=== PATIENT | female | born 1980 ===

== ENCOUNTER 2017-12-14 04:58 | Emergency (ER) | payer SELFPAY ==
[2017-12-14 05:24] VITALS: BP 143/79; PULSE 111; RESP 18; TEMP 99.1; O2SAT 99
[2017-12-14 05:31] VITALS: BMI 25.7
--- NOTE | 2017-12-14 05:50 | ED PDOC ---
Arrival/HPI - General Chief Complaint: Flu-like Symptoms Time Seen by Provider: 12/14/17 05:21 Historian: Patient - History of Present Illness Narrative History of Present Illness (Text): 12/14/17 05:50 A 37 year old female, whose past medical history includes arthritis, presents to the emergency department complaining of body aches and headache that developed two days ago, throat pain, fever and cough since yesterday. Nurse Ines served as application services manager. Patient reports a fever of 104 yesterday. Denies getting flu shot this year. Notes her had the flu three days ago. Patient denies any other complaints at this time. Time/Duration: Other (two days, yesterday) Symptom Onset: Sudden Symptom Course: Unchanged Activities at Onset: Rest Context: Home Past Medical History - Provider Review Nursing Documentation Reviewed: Yes - Infectious Disease Hx of Infectious Diseases: None - Musculoskeletal/Rheumatological Hx Arthritis: Yes - Genitourinary/Gynecological Other/Comment: Herpes - Psychiatric Hx Substance Use: No - Surgical History Hx Section: Yes - Anesthesia Hx Anesthesia: Yes Hx Anesthesia Reactions: No Hx Malignant Hyperthermia: No Family/Social History - Physician Review Nursing Documentation Reviewed: Yes Family/Social History: No Known Family HX Smoking Status: Never Smoked Hx Alcohol Use: No Hx Substance Use: No Allergies/Home Meds Allergies/Adverse Reactions: Allergies No Known Allergies Allergy (Verified 09/30/16 20:59) Review of Systems - Physician Review All systems were reviewed & negative as marked: Yes - Review of Systems Constitutional: Fevers, Other (body aches) ENT: Other (throat pain) Respiratory: Cough Neurological: Headache Physical Exam Vital Signs Reviewed: Yes Vital Signs Temp Pulse Resp BP Pulse Ox 12/14/17 05:22 99.1 F 111 H 18 143/79 99 Temperature: Afebrile Blood Pressure: Normal Pulse: Tachycardic Respiratory Rate: Normal Appearance: Positive for: Well-Appearing, Non-Toxic, Comfortable Pain Distress: None Mental Status: Positive for: Alert and Oriented X 3 - Systems Exam Head: Present: Atraumatic, Normocephalic Pupils: Present: PERRL Extroacular Muscles: Present: EOMI Conjunctiva: Present: Normal Mouth: Present: Moist Mucous Membranes Neck: Present: Normal Range of Motion Respiratory/Chest: Present: Clear to Auscultation, Good Air Exchange. No: Respiratory Distress, Accessory Muscle Use Cardiovascular: Present: Regular Rate and Rhythm, Normal S1, S2. No: Murmurs Abdomen: Present: Normal Bowel Sounds. No: Tenderness, Distention, Peritoneal Signs Back: Present: Normal Inspection Upper Extremity: Present: Normal Inspection. No: Cyanosis, Edema Lower Extremity: Present: Normal Inspection. No: Edema Neurological: Present: GCS=15, CN II-XII Intact, Speech Normal Skin: Present: Warm, Dry, Normal Color. No: Rashes Psychiatric: Present: Alert, Oriented x 3, Normal Insight, Normal Concentration Medical Decision Making ED Course and Treatment: 12/14/17 05:47 Impression: A 37 year old female with body aches, headache, throat pain, fever and cough. Plan: -- Rapid Flu A/B -- Reassess and disposition Prior Visits: Notes and results from previous visits were reviewed. Patient was last seen in the emergency department on 09/30/16 for evaluation of headache, neck pain, left arm pain and chest pain. Progress Notes: - Lab Interpretations Lab Results: Lab Results 12/14/17 05:38: Influenza Typ A,B (EIA) Pos for influenza a H I have reviewed the lab results: Yes - Scribe Statement The provider has reviewed the documentation as recorded by the [place] Call Provider Scribe Attestation: All medical record entries made by the Scribe were at my direction and personally dictated by me. I have reviewed the chart and agree that the record accurately reflects my personal performance of the history, physical exam, medical decision making, and the department course for this patient. I have also personally directed, reviewed, and agree with the discharge instructions and disposition. Disposition/Present on Arrival - Present on Arrival Any Indicators Present on Arrival: No History of DVT/PE: No History of Uncontrolled Diabetes: No Urinary Catheter: No History of Decub. Ulcer: No History Surgical Site Infection Following: None - Disposition Have Diagnosis and Disposition been Completed?: Yes Diagnosis: Influenza A Disposition: HOME/ ROUTINE Disposition Time: 06:23 Patient Plan: Discharge Condition: GOOD Discharge Instructions (ExitCare): Influenza (ED) Print Language: SWEDISH Forms: [employer] (Russian)
== END 2017-12-14 06:45 | disposition home or self-care (01) ==
LOC: ED 04:58
DX: J10.1 Influenza due to other identified influenza virus with other respiratory manifestations (principal); M19.90 Unspecified osteoarthritis, unspecified site

== ENCOUNTER 2018-09-26 22:00 | Emergency (ER) | payer BC ==
[2018-09-26 22:22] VITALS: BMI 26.2
[2018-09-26 22:24] VITALS: TEMP 98.4
[2018-09-26 23:03] LABS: URINE BILIRUBIN NEGATIVE (NEGATIVE); URINE BLOOD NEGATIVE (NEGATIVE); URINE GLUCOSE (UA) NEGATIVE (NEGATIVE); URINE LEUKOCYTE ESTERASE NEGATIVE Leu/uL (NEGATIVE); URINE PROTEIN NEGATIVE mg/dL (<30 mg/dL); URINE UROBILINOGEN 0.2 E.U./dL (<1 E.U./dL)
[2018-09-26 23:04] LABS: URINE APPEARANCE CLEAR (CLEAR); URINE COLOR LIGHT YELLOW (YELLOW)
--- NOTE | 2018-09-26 23:54 | ED PDOC ---
Arrival/HPI <PedritoNain - Last Filed: 09/27/18 00:58> - General Historian: Patient - History of Present Illness Narrative History of Present Illness (Text): 09/26/18 23:45 38yo female with no past medical history who present with complaint of left sided back pain that radiates to her suprapubic area x 3days. Admits to dysuria. Reports multiple history of UTI. She did not take any analgesic. Denies fever,chills, nausea, vomiting, diarrhea, constipation, trauma, focal weakness, saddle anesthesia, any other complaint. <Perico Clinton A - Last Filed: 09/27/18 02:00> - General Chief Complaint: Female Genitourinary Past Medical History - Provider Review Nursing Documentation Reviewed: Yes - Infectious Disease Hx of Infectious Diseases: None - Musculoskeletal/Rheumatological Hx Arthritis: Yes - Genitourinary/Gynecological Other/Comment: Herpes - Psychiatric Hx Substance Use: No - Surgical History Hx Appendectomy: Yes Hx Section: Yes - Anesthesia Hx Anesthesia: Yes Hx Anesthesia Reactions: No Hx Malignant Hyperthermia: No <Perico Clinton A - Last Filed: 09/27/18 02:00> Family/Social History - Physician Review Nursing Documentation Reviewed: Yes Family/Social History: Unknown Family HX Smoking Status: Never Smoked Hx Alcohol Use: No Hx Substance Use: No <Perico Clinton A - Last Filed: 09/27/18 02:00> Allergies/Home Meds <PedritoNain - Last Filed: 09/27/18 00:58> <Perico Clinton A - Last Filed: 09/27/18 02:00> Allergies/Adverse Reactions: Allergies No Known Allergies Allergy (Verified 09/30/16 20:59) Review of Systems - Physician Review All systems were reviewed & negative as marked: Yes - Review of Systems Constitutional: Normal Eyes: Normal ENT: Normal Respiratory: Normal Cardiovascular: Normal Gastrointestinal: Normal Genitourinary Female: Normal Musculoskeletal: Back Pain Skin: Normal Neurological: Normal Endocrine: Normal Hemo/Lymphatic: Normal Psychiatric: Normal <Perico Clinton A - Last Filed: 09/27/18 02:00> Physical Exam Vital Signs Temp Pulse Resp Pulse Ox 09/26/18 22:22 98.4 F 72 18 99 <Nain Major - Last Filed: 09/27/18 00:58> Vital Signs Reviewed: Yes Vital Signs Temp Pulse Resp Pulse Ox 09/26/18 22:22 98.4 F 72 18 99 Temperature: Afebrile Blood Pressure: Normal Pulse: Regular Respiratory Rate: Normal Appearance: Positive for: Well-Appearing, Non-Toxic, Comfortable Pain Distress: None Mental Status: Positive for: Alert and Oriented X 3 - Systems Exam Head: Present: Atraumatic, Normocephalic Pupils: Present: PERRL Extroacular Muscles: Present: EOMI Conjunctiva: Present: Normal Mouth: Present: Moist Mucous Membranes Neck: Present: Normal Range of Motion Respiratory/Chest: Present: Clear to Auscultation, Good Air Exchange. No: Respiratory Distress, Accessory Muscle Use Cardiovascular: Present: Regular Rate and Rhythm, Normal S1, S2. No: Murmurs Abdomen: Present: Tenderness (Suprapubic tenderness), Normal Bowel Sounds, Other (Soft). No: Distention, Peritoneal Signs, Rebound, Guarding, McBurney's Point Tender, Rovsing's Sign Present Back: Present: Paraspinal Tenderness (Left side). No: Midline Tenderness, Pain with Leg Raise Upper Extremity: Present: Normal Inspection. No: Cyanosis, Edema Lower Extremity: Present: Normal Inspection. No: Edema Neurological: Present: GCS=15, CN II-XII Intact, Speech Normal Skin: Present: Warm, Dry, Normal Color. No: Rashes Psychiatric: Present: Alert, Oriented x 3, Normal Insight, Normal Concentration <Diru,Happiness A - Last Filed: 09/27/18 02:00> Medical Decision Making - Lab Interpretations Lab Results: Lab Results 09/26/18 22:57: Urine Color Light yellow, Urine Appearance Clear, Urine pH 6.0, Ur Specific [place] <= 1.005, Urine Protein Negative, Urine Glucose (UA) Negative, Urine Ketones Negative, Urine Blood Negative, Urine Nitrate Negative, Urine Bilirubin Negative, Urine Urobilinogen 0.2, Ur Leukocyte Esterase Negative - RAD Interpretation Radiology Orders: 09/26/18 23:24 ABD & PELVIS W/O PO OR IV CONT [CT] Stat <Nain Major - Last Filed: 09/27/18 00:58> ED Course and Treatment: 09/27/18 01:50 PT presented for stated history. She was comfortable in Emergency department , even without any analgesic in Emergency department. Urinalysis was negative Abdominal/Pelvic Ct was ordered to r/o renal colic. FINDINGS: The visualized lung bases are unremarkable. Normal unenhanced liver. Normal gallbladder and extrahepatic biliary system. Normal unenhanced spleen. Normal pancreas. Normal bilateral adrenal glands. Normal size of the right kidney. There is no right renal mass. There are no right renal calculi. There is no right hydronephrosis. Normal visualized right ureter. Normal size of the left kidney. There is no left renal mass. There are no left renal calculi. There is no left hydronephrosis. Normal visualized left ureter. Fluid filled stomach. Normal small intestine. Uncomplicated diverticulosis of the colon. Mild amount of fecal residue and large bowels. The appendix is surgically absent. There is no demonstrated peritoneal fluid. Normal abdominal aorta. Normal inferior vena cava. Normal retroperitoneum. Normal urinary bladder. There is no pelvic mass lesion or lymphadenopathy. There is no pelvic fluid. Unremarkable intrauterine device. Normal abdominal wall. Normal osseous structures. IMPRESSION: Mild amount of fecal residue in the large bowels. Gastroparesis. Result was DW the pt and she was DC home with Miralax and ibuprofen Referred to her PMD. - Lab Interpretations Lab Results: Lab Results 09/26/18 22:57: Urine Color Light yellow, Urine Appearance Clear, Urine pH 6.0, Ur Specific [place] <= 1.005, Urine Protein Negative, Urine Glucose (UA) Negative, Urine Ketones Negative, Urine Blood Negative, Urine Nitrate Negative, Urine Bilirubin Negative, Urine Urobilinogen 0.2, Ur Leukocyte Esterase Negative - RAD Interpretation Radiology Orders: 09/26/18 23:24 ABD & PELVIS W/O PO OR IV CONT [CT] Stat <Perico Clinton - Last Filed: 09/27/18 02:00> - PA / CANAL BOAT CAPTAIN / Resident Statement GUSTAVO has reviewed & agrees with the documentation as recorded. GUSTAVO has examined the patient and agrees with the treatment plan. <Nain Major - Last Filed: 09/27/18 00:58> Disposition/Present on Arrival <Nain Major - Last Filed: 09/27/18 00:58> - Present on Arrival Any Indicators Present on Arrival: No History of DVT/PE: No History of Uncontrolled Diabetes: No Urinary Catheter: No History of Decub. Ulcer: No History Surgical Site Infection Following: None - Disposition Have Diagnosis and Disposition been Completed?: Yes Disposition Time: 01:55 Patient Plan: Discharge <Perico Clinton - Last Filed: 09/27/18 02:00> - Disposition Diagnosis: Back pain, Constipation Disposition: HOME/ ROUTINE Condition: STABLE Discharge Instructions (ExitCare): Constipation, Adult (DC) Additional Instructions: Follow up with your Doctor/GI Increase your fiber intake Return to Emergency department for any new or worsening symptoms Prescriptions: Ibuprofen [Motrin Tab] 600 mg PO Q6 #15 tab Polyethylene Glycol 3350 [Miralax] 17 % PO ONCE #100 ml Referrals: Puma Cobb DO [Staff Provider] - Follow up with primary Ana Morales MD [Staff Provider] - Follow up with primary Forms: [employer] (Georgian)
[2018-09-27 02:09] VITALS: BP 126/70; PULSE 68; RESP 17; O2SAT 100
--- NOTE | 2018-09-27 09:35 | CT ---
Date of service: 09/26/2018 PROCEDURE: CT Abdomen and pelvis.. HISTORY: Back/abdominal pain COMPARISON: The none. TECHNIQUE: Contiguous axial images of the abdomen and pelvis performed without oral or intravenous contrast material. Additional 2D sagittal and coronal reformats generated reformats. The Radiation dose: Total exam DLP = 353.79 mGy-cm. This CT exam was performed using one or more of the following dose reduction techniques: Automated exposure control, adjustment of the mA and/or kV according to patient size, and/or use of iterative reconstruction technique. FINDINGS: LOWER THORAX: Heart size within range of normal. No significant pericardial effusion. Tiny hiatal hernia. Mild passive/dependent type atelectasis both posterior lower lung bey. No effusion or basilar pneumothorax. LIVER: Unremarkable. No gross lesion or ductal dilatation. GALLBLADDER AND BILE DUCTS: Gallbladder is physiologically distended. No evidence of intraluminal gallbladder calculi. The PANCREAS: Unremarkable. No mass. No ductal dilatation. SPLEEN: Unremarkable. No splenomegaly. ADRENALS: No adrenal lesions. KIDNEYS AND URETERS: Kidneys demonstrate relatively symmetric size. No evidence of nephrolithiasis or hydronephrosis. BLADDER: Grossly unremarkable. REPRODUCTIVE: In situ copper T IUD. APPENDIX: Appendix is not identified and there does appear to be a radiopaque suture along the inferomedial wall of the cecum likely representing changes of prior appendectomy however clinical correlation with surgical history recommended. Appendectomy changes. BOWEL: Evaluation of the bowel is limited due to the lack of oral contrast material. The stomach is distended with food debris liquid and air. Visualized loops of small bowel exhibit normal contour and caliber. No evidence of acute mechanical small bowel obstruction. Moderate amount of stool seen within the cecum ascending and to a lesser degree proximal transverse colon suggesting mild fecal retention. There are scattered colonic diverticula seen along the sigmoid and distal descending colon however no radiographic evidence of acute diverticulitis. The the PERITONEUM: Unremarkable. No fluid collection. No free air. There is a small fat containing umbilical hernia. LYMPH NODES: Unremarkable. No enlarged lymph nodes. VASCULATURE: Unremarkable. No aortic aneurysm. No aortic atherosclerotic calcification or mural plaque present. BONES: Minor multilevel degenerative spondylosis of the lumbar and to a lesser degree lower thoracic spine. There are no acute compression fractures no retropulsed fragments. OTHER FINDINGS: None. IMPRESSION: No acute intra abdominal pathology. Colonic diverticulosis without radiographic evidence of acute diverticulitis.. Postoperative changes of appendectomy. In situ copper T IUD.
== END 2018-09-27 02:08 | disposition home or self-care (01) ==
LOC: ED 22:00
DX: R30.0 Dysuria (principal); K59.00 Constipation, unspecified; M54.9 Dorsalgia, unspecified
CPT/HCPCS: 74176; 81003; 96372; 99283; J1885